=== PATIENT | male | born 1970 | race Caucasian/White ===

== ENCOUNTER 2019-01-27 10:14 | Emergency (ER) | payer BC ==
--- NOTE | 2019-01-27 11:25 | EDM.PDOC ---
ED HPI GENERAL MEDICAL PROBLEM - General Chief Complaint: Bite:Animal, Insect Stated Complaint: tick bite onright leg Time Seen by Provider: 01/27/19 11:15 Source of Information: Reports: Patient History Limitations: Reports: No Limitations - History of Present Illness INITIAL COMMENTS - FREE TEXT/NARRATIVE: Ciro is a 48 year old male presents to the ED today with tick bite to right leg behind knee on Monday, thinks it was a deer tick, now redness around area , no drainage, fever, joint pain or other rashes, no hx of lyme's Onset: Gradual Duration: Day(s): (3) - Related Data Allergies Allergy/AdvReac Type Severity Reaction Status Date / Time No Known Allergies Allergy Verified 01/27/19 10:42 Home Meds: Home Meds Omeprazole Magnesium [Prilosec Otc] 01/27/19 [History] glipiZIDE [Glucotrol] 01/27/19 [History] metFORMIN [Glucophage] 01/27/19 [History] Past Medical History - Past Health History Medical/Surgical History: Denies Medical/Surgical History Social & Family History - Tobacco Use Smoking Status *Q: Current Every Day Smoker Years of Tobacco use: 20 Packs/Tins Daily: 0.5 ED ROS GENERAL - Review of Systems Review Of Systems: ROS reveals no pertinent complaints other than HPI. ED EXAM, ANIMAL BITE - Physical Exam Exam: See Below Exam Limited By: No Limitations General Appearance: Alert, WD/WN, No Apparent Distress Head: Atraumatic Neck: Normal Inspection, Supple Respiratory/Chest: No Respiratory Distress Cardiovascular: Bradycardia Back Exam: Normal Inspection Extremities: Normal Range of Motion Neurological: Alert, Oriented Psychiatric: Normal Affect, Normal Mood Skin Exam: Other (tick bite behind right knee, head remains, removed with tweezers, surrounding erythema, no bull's eye, mildly warm) Lymphatic: No Adenopathy Course - Vital Signs Last Recorded V/S: Last Vital Signs Temp 34.9 C L 01/27/19 10:49 Pulse 54 L 01/27/19 10:49 Resp 12 01/27/19 10:49 BP 142/79 H 01/27/19 10:49 Pulse Ox 96 01/27/19 10:49 Ciro is a 48 year old male who presents today with tick bite, occurred on Monday. Patient's exam consistent with inflammatory response, ? early cellulitis, head was removed here today, no fever or other symptoms concerning for tick borne illness, given duration of time since bite and presentation will treat with 10 days of Doxycycline. Patient given instructions as to when to return, agreeable to plan of care and discharged in stable condition. Departure - Departure Time of Disposition: 11:45 Disposition: Home, Self-Care 01 Condition: Good Clinical Impression: Tick bite of right lower leg Qualifiers: Encounter type: initial encounter Qualified Code(s): S80.861A - Insect bite ( nonvenomous), right lower leg, initial encounter - Discharge Information Instructions: Insect Bite, Adult, [id number] Referrals: PCP,None [Primary Care Provider] - Forms: ED Department Discharge Additional Instructions: Take Doxycycline as prescribed. Return with any bulls eye type rash, joint pain or fever.
== END 2019-01-27 11:32 | disposition home or self-care (01) ==
LOC: JP.ED 10:14
DX: S80.261A Insect bite (nonvenomous), right knee, initial encounter (principal); E11.9 Type 2 diabetes mellitus without complications; F17.210 Nicotine dependence, cigarettes, uncomplicated; W57.XXXA Bitten or stung by nonvenomous insect and other nonvenomous arthropods, initial encounter
CPT/HCPCS: 99282

== ENCOUNTER 2022-11-14 06:31 | Day surgery (SDC) | payer BC ==
[2022-11-14] MEDS ORDERED: Lactated Ringers 1,000 ML IV SCH (07:15)
[2022-11-14] MEDS ORDERED: Midazolam 1 MG/ML 2 ML SDV ONE (07:17)
[2022-11-14] MEDS ORDERED: Propofol 200 MG/20 ML SDV ONE ×2 (07:17→08:57)
[2022-11-14] MEDS ORDERED: fentaNYL 100 MCG/2 ML SDV ONE (07:17)
== END 2022-11-14 10:15 | disposition home or self-care (01) ==
LOC: JP.SDS 06:31
PROVIDERS: ATTEND Student in an Organized Health Care Education/Training Program
DX: Z12.11 Encounter for screening for malignant neoplasm of colon (principal); Q43.8 Other specified congenital malformations of intestine; K21.9 Gastro-esophageal reflux disease without esophagitis; E11.9 Type 2 diabetes mellitus without complications
CPT/HCPCS: 45378; J2250; J2704; J3010; J7120

== ENCOUNTER 2024-11-02 19:37 | Inpatient (IN) | payer BC ==
[2024-11-02 20:48] LABS: BASOPHILS ABSOLUTE AUTO 0.04 K/uL (0.00-0.10); BASOPHILS PERCENT AUTO 0.9 % (0.1-1.3); EOSINOPHILS ABSOLUTE AUTO 0.03 K/uL (0.00-0.40); EOSINOPHILS PERCENT AUTO 0.7 % (0.0-5.4); HEMATOCRIT 44.5 % (38.4-49.7); HEMOGLOBIN 15.6 g/dL (12.9-16.9); IMMATURE GRAN ABSOLUTE AUTO 0.04 K/uL (0.00-0.23); IMMATURE GRAN PERCENT AUTO 0.9 % (0.0-0.7); LYMPHOCYTES ABSOLUTE AUTO 1.28 K/uL (0.8-3.3); LYMPHOCYTES PERCENT AUTO 30.1 % (11.4-47.7); MEAN CORPUSCULAR HEMOGLOBIN 32.8 pg (31.6-35.5); MEAN CORPUSCULAR HGB CONC 35.1 g/dL (31.6-35.5); MEAN CORPUSCULAR VOLUME 93.7 fL (81.4-99.0); MONOCYTES ABSOLUTE AUTO 0.41 K/uL (0.20-0.90); MONOCYTES PERCENT AUTO 9.6 % (3.3-12.6); NEUTROPHILS ABSOLUTE AUTO 2.45 K/uL (1.0-7.6); NEUTROPHILS PERCENT AUTO 57.8 % (40.0-78.1); PLATELET COUNT,PLT 212 K/uL (130-375); RED BLOOD CELL COUNT 4.75 M/uL (4.14-5.76); WHITE BLOOD CELL COUNT,WBC 4.3 K/uL (3.2-11.0)
[2024-11-02] MEDS: Adenosine 6 MG/2 ML SDV IVPUSH ONE (20:50)
[2024-11-02] MEDS: Sodium Chloride 0.9% 10 ML Syringe FLUSH PRN (20:51)
[2024-11-02] MEDS: Aspirin 81 MG Tab.Chew PO ONE (20:58)
[2024-11-02] MEDS ORDERED: Diltiazem 100 MG in Sodium Chloride 0.9% 100 ML IV SCH (21:00)
[2024-11-02] MEDS: Diltiazem 25 MG/5 ML SDV IVPUSH ONE (21:08)
[2024-11-02 21:11] LABS: A/G RATIO 0.9 (1.2-2.2); ALANINE AMINOTRANSFERASE,ALT 47 U/L (12-78); ALBUMIN 3.4 g/dL (3.4-5.0); ALKALINE PHOSPHATASE 128 U/L (46-116); ANION GAP 18.4 mmol/L (5.0-14.0); ASPARTATE AMNIOTRANSFERASE,AST 35 U/L (15-37); BILIRUBIN TOTAL 0.3 mg/dL (0.2-1.0); BLOOD UREA NITROGEN,BUN 7 mg/dL (7-18); CALCIUM 9.1 mg/dL (8.5-10.1); CARBON DIOXIDE,CO2 25 mmol/L (21-32); CHLORIDE,CL 96 mmol/L (100-108); CREATININE 1.1 mg/dL (0.8-1.3); EST CRCL DRUG DOSING (CG) 83.67 mL/min; ESTIMATED GFR 81 mL/min (>60); GLUCOSE RANDOM 391 mg/dL (74-106); POTASSIUM,K 4.4 mmol/L (3.6-5.2); PROTEIN TOTAL,TP 7.1 g/dL (6.4-8.2); SODIUM,NA 135 mmol/L (140-148); TROPONIN I HIGH SENSITIVITY 20.7 pg/mL (<=60.3)
[2024-11-02] MEDS: Sodium Chloride 0.9% 100 ML ONE (21:11)
[2024-11-02] MEDS: Diltiazem 100 MG AdvVial ONE (21:12)
[2024-11-02] MEDS ORDERED: Sodium Chloride 0.9% 250 ML AdvBag IV SCH (21:15)
[2024-11-02] MEDS: Diltiazem 100 MG in Sodium Chloride 0.9% 100 ML IV SCH (21:16)
[2024-11-02] MEDS: Enoxaparin 80 MG/0.8 ML Syringe SUBCUT ONE (21:18)
[2024-11-02] MEDS ORDERED: Glucagon,Human Recombinant 1 MG Vial IM PRN (22:25)
[2024-11-02] MEDS ORDERED: 50% Dextrose in Water 50 ML Syringe IVPUSH PRN (22:25)
[2024-11-02] MEDS: Insulin Regular, Human 100 Units/ML 10 ML Vial SUBCUT ONE (23:22)
[2024-11-03] MEDS: Metoprolol Tartrate 25 MG Tab PO ONE (00:17)
[2024-11-03] MEDS ORDERED: Nicotine 14 MG/24 Hr Patch TRDERM PRN (00:42)
[2024-11-03] MEDS ORDERED: Ondansetron 4 MG Tab.DIS PO PRN (00:42)
[2024-11-03] MEDS ORDERED: Acetaminophen 325 MG Tab PO PRN (00:42)
[2024-11-03] MEDS ORDERED: Sennosides/Docusate Sodium 50-8.6 MG Tab PO PRN (00:42)
[2024-11-03] MEDS ORDERED: LORazepam 1 MG Tab PO SCH (00:42)
[2024-11-03] MEDS ORDERED: Magnesium Hydroxide 400 MG/5 ML Susp 30 ML Cup PO PRN (00:42)
[2024-11-03] MEDS ORDERED: LORazepam 2 MG/ML SDV IV SCH (00:42)
[2024-11-03] MEDS ORDERED: Ondansetron 4 MG/2 ML SDV IV PRN (00:42)
[2024-11-03 05:43] LABS: HEMOGLOBIN 15.4 g/dL (12.9-16.9); MEAN CORPUSCULAR HEMOGLOBIN 32.9 pg (31.6-35.5); MEAN CORPUSCULAR HGB CONC 35.8 g/dL (31.6-35.5); MEAN CORPUSCULAR VOLUME 91.9 fL (81.4-99.0); RED BLOOD CELL COUNT 4.68 M/uL (4.14-5.76)
[2024-11-03] MEDS: Sodium Chloride 0.9% 100 ML ONE (05:48)
[2024-11-03] MEDS: Diltiazem 100 MG AdvVial ONE (05:48)
[2024-11-03 05:59] LABS: CALCIUM 9.5 mg/dL (8.5-10.1); EST CRCL DRUG DOSING (CG) 92.03 mL/min
[2024-11-03] MEDS ORDERED: Diltiazem 100 MG in Sodium Chloride 0.9% 100 ML IV SCH (08:00)
[2024-11-03] MEDS: Citalopram 20 MG Tab PO SCH (08:11)
[2024-11-03] MEDS: Folic Acid 1 MG Tab PO SCH (08:11)
[2024-11-03] MEDS: Thiamine 100 MG Tab PO SCH (08:11)
[2024-11-03] MEDS: Pantoprazole 40 MG Tab.CR PO SCH (08:11)
[2024-11-03] MEDS: Aspirin 81 MG Tab.Chew PO SCH (08:12)
[2024-11-03] MEDS: atorvaSTATin 20 MG Tab PO SCH (08:13)
[2024-11-03] MEDS: Metoprolol Tartrate 25 MG Tab PO SCH ×2 (08:13→14:07)
[2024-11-03] MEDS: Gabapentin 100 MG Cap PO SCH (08:13)
[2024-11-03] MEDS ORDERED: VARENICLINE 1 MG PO SCH (09:00)
[2024-11-03 10:31] LABS: APPEARANCE,URINE CLEAR (CLEAR); BILIRUBIN,URINE NEGATIVE (NEGATIVE); COLOR,URINE YELLOW (YELLOW); GLUCOSE,URINE 500 mg/dL (NEGATIVE); KETONES,URINE TRACE mg/dL (NEGATIVE); LEUKOCYTE ESTERASE,URINE NEGATIVE (NEGATIVE); NITRITE,URINE NEGATIVE (NEGATIVE); OCCULT BLOOD,URINE NEGATIVE (NEGATIVE); PH,URINE 5.5 (5.0-8.0); PROTEIN,URINE 30 mg/dL (NEGATIVE)
[2024-11-03 10:38] LABS: AMORPHOUS SEDIMENT,URINE NOT SEEN; BACTERIA,URINE FEW; EPITHELIAL CELLS,URINE RARE; MUCUS,URINE FEW; RBC,URINE 0-5 (0-5); WBC,URINE NOT SEEN (0-5)
[2024-11-03] MEDS: Diltiazem IR 30 MG Tab PO SCH (11:08)
[2024-11-03] MEDS: Potassium Chloride 20 MEQ Tab.ER PO ONE (11:08)
[2024-11-03] MEDS: Enoxaparin 40 MG/0.4 ML Syringe SUBCUT SCH (21:05)
[2024-11-03] MEDS: Melatonin 3 MG Tab PO SCH (21:05)
[2024-11-04] MEDS: metFORMIN 500 MG Tab PO SCH (08:29)
[2024-11-04] MEDS: Diltiazem 120 MG Cap.CD PO SCH (08:53)
[2024-11-04] MEDS: glipiZIDE 5 MG Tab PO SCH (11:26)
[2024-11-04] MEDS: Empagliflozin 25 MG Tab PO SCH (11:26)
== END 2024-11-04 16:19 | disposition home or self-care (01) | DRG 775 ==
LOC: JP.ED 19:37 → JP.ICU 11-03 00:13
PROVIDERS: ADMIT Registered Nurse; ATTEND Hospitalist
PROC: HZ2ZZZZ Detoxification Services for Substance Abuse Treatment (ICD-10-PCS; principal; 2024-11-03)
DX: F10.130 Alcohol abuse with withdrawal, uncomplicated (principal); I48.91 Unspecified atrial fibrillation; E78.00 Pure hypercholesterolemia, unspecified; K21.9 Gastro-esophageal reflux disease without esophagitis; F32.A Depression, unspecified; I48.92 Unspecified atrial flutter; F17.200 Nicotine dependence, unspecified, uncomplicated; E11.649 Type 2 diabetes mellitus with hypoglycemia without coma; Z79.84 Long term (current) use of oral hypoglycemic drugs; Z86.16 Personal history of COVID-19; Z79.899 Other long term (current) drug therapy
CPT/HCPCS: 36415; 80048; 80053; 80307; 81001; 82947; 83690; 83880; 84484; 85025; 85027; 93005; 93010; 96365; 96366; 96372; 96375; 99222; 99232; 99239; 99285; 99285-25; A9270-GY; J0153; J1650; J3490

== ENCOUNTER 2025-01-01 19:09 | Inpatient (IN) | payer BC ==
[2025-01-01 20:01] LABS: BASOPHILS ABSOLUTE AUTO 0.04 K/uL (0.00-0.10); BASOPHILS PERCENT AUTO 0.8 % (0.1-1.3); EOSINOPHILS ABSOLUTE AUTO 0.07 K/uL (0.00-0.40); EOSINOPHILS PERCENT AUTO 1.4 % (0.0-5.4); HEMATOCRIT 40.3 % (38.4-49.7); HEMOGLOBIN 13.9 g/dL (12.9-16.9); IMMATURE GRAN PERCENT AUTO 0.4 % (0.0-0.7); LYMPHOCYTES ABSOLUTE AUTO 1.53 K/uL (0.8-3.3); LYMPHOCYTES PERCENT AUTO 31.5 % (11.4-47.7); MEAN CORPUSCULAR HEMOGLOBIN 31.1 pg (31.6-35.5); MEAN CORPUSCULAR HGB CONC 34.5 g/dL (31.6-35.5); MEAN CORPUSCULAR VOLUME 90.2 fL (81.4-99.0); MONOCYTES ABSOLUTE AUTO 0.43 K/uL (0.20-0.90); MONOCYTES PERCENT AUTO 8.8 % (3.3-12.6); NEUTROPHILS ABSOLUTE AUTO 2.77 K/uL (1.0-7.6); NEUTROPHILS PERCENT AUTO 57.1 % (40.0-78.1); PLATELET COUNT,PLT 226 K/uL (130-375); RED BLOOD CELL COUNT 4.47 M/uL (4.14-5.76); WHITE BLOOD CELL COUNT,WBC 4.9 K/uL (3.2-11.0)
[2025-01-01 20:02] LABS: IMMATURE GRAN ABSOLUTE AUTO 0.02 K/uL (0.00-0.23)
[2025-01-01] MEDS: Sodium Chloride 0.9% 10 ML Syringe FLUSH PRN (20:14)
[2025-01-01] MEDS: Diltiazem 25 MG/5 ML SDV IVPUSH ONE (20:14)
[2025-01-01 20:24] LABS: A/G RATIO 1.2 (1.2-2.2); ALANINE AMINOTRANSFERASE,ALT 23 U/L (12-78); ALBUMIN 3.5 g/dL (3.4-5.0); ALKALINE PHOSPHATASE 77 U/L (46-116); ASPARTATE AMNIOTRANSFERASE,AST 20 U/L (15-37); BILIRUBIN TOTAL 0.6 mg/dL (0.2-1.0); BLOOD UREA NITROGEN,BUN 11 mg/dL (7-18); CALCIUM 8.9 mg/dL (8.5-10.1); CARBON DIOXIDE,CO2 27 mmol/L (21-32); CHLORIDE,CL 100 mmol/L (100-108); CREATININE 0.8 mg/dL (0.8-1.3); EST CRCL DRUG DOSING (CG) 115.04 mL/min; ESTIMATED GFR 106 mL/min (>60); GLUCOSE RANDOM 108 mg/dL (74-106); POTASSIUM,K 3.8 mmol/L (3.6-5.2); PROTEIN TOTAL,TP 6.5 g/dL (6.4-8.2); SODIUM,NA 133 mmol/L (140-148); TROPONIN I HIGH SENSITIVITY 13.3 pg/mL (<=60.3)
[2025-01-01 20:25] LABS: ANION GAP 9.8 mmol/L (5.0-14.0)
[2025-01-01 20:40] LABS: APPEARANCE,URINE CLEAR (CLEAR); BILIRUBIN,URINE NEGATIVE (NEGATIVE); COLOR,URINE YELLOW (YELLOW); GLUCOSE,URINE 500 mg/dL (NEGATIVE); KETONES,URINE NEGATIVE (NEGATIVE); LEUKOCYTE ESTERASE,URINE NEGATIVE (NEGATIVE); NITRITE,URINE NEGATIVE (NEGATIVE); OCCULT BLOOD,URINE NEGATIVE (NEGATIVE); PH,URINE 5.5 (5.0-8.0); PROTEIN,URINE 30 mg/dL (NEGATIVE)
[2025-01-01 20:47] LABS: RBC,URINE 0-5 (0-5); WBC,URINE 0-5 (0-5)
[2025-01-01 20:48] LABS: AMORPHOUS SEDIMENT,URINE NOT SEEN; BACTERIA,URINE NOT SEEN; EPITHELIAL CELLS,URINE RARE; MUCUS,URINE NOT SEEN
[2025-01-01] MEDS: Metoprolol Tartrate 50 MG Tab PO ONE (21:05)
[2025-01-01] MEDS ORDERED: Sennosides/Docusate Sodium 50-8.6 MG Tab PO PRN (22:12)
[2025-01-01] MEDS ORDERED: Acetaminophen 325 MG Tab PO PRN (22:12)
[2025-01-01] MEDS ORDERED: Ondansetron 4 MG/2 ML SDV IV PRN (22:12)
[2025-01-01] MEDS ORDERED: Magnesium Hydroxide 400 MG/5 ML Susp 30 ML Cup PO PRN (22:12)
[2025-01-01] MEDS ORDERED: Nicotine 14 MG/24 Hr Patch TRDERM PRN (22:12)
[2025-01-01] MEDS ORDERED: Ondansetron 4 MG Tab.DIS PO PRN (22:12)
[2025-01-01] MEDS ORDERED: Sodium Chloride 0.9% 10 ML Syringe FLUSH PRN (22:12)
[2025-01-02 05:48] LABS: HEMOGLOBIN 14.3 g/dL (12.9-16.9); MEAN CORPUSCULAR HEMOGLOBIN 31.3 pg (31.6-35.5); MEAN CORPUSCULAR HGB CONC 34.9 g/dL (31.6-35.5); MEAN CORPUSCULAR VOLUME 89.7 fL (81.4-99.0); RED BLOOD CELL COUNT 4.57 M/uL (4.14-5.76); WHITE BLOOD CELL COUNT,WBC 4.4 K/uL (3.2-11.0)
[2025-01-02 06:14] LABS: ANION GAP 12.8 mmol/L (5.0-14.0); CALCIUM 8.5 mg/dL (8.5-10.1); CREATININE 0.8 mg/dL (0.8-1.3); EST CRCL DRUG DOSING (CG) 115.04 mL/min; POTASSIUM,K 3.8 mmol/L (3.6-5.2); TROPONIN I HIGH SENSITIVITY 14.8 pg/mL (<=60.3)
[2025-01-02] MEDS: Diltiazem 120 MG Cap.CD PO SCH (08:28)
[2025-01-02] MEDS: Empagliflozin 25 MG Tab PO SCH (08:29)
[2025-01-02] MEDS: Apixaban 5 MG Tab PO SCH (08:29)
[2025-01-02] MEDS: glipiZIDE 5 MG Tab.ER PO SCH (08:29)
[2025-01-02] MEDS: Citalopram 20 MG Tab PO SCH (08:29)
[2025-01-02] MEDS: atorvaSTATin 20 MG Tab PO SCH (08:29)
[2025-01-02] MEDS: metFORMIN 500 MG Tab PO SCH (08:29)
[2025-01-02] MEDS: Metoprolol Succinate 50 MG Tab.ER PO SCH (08:29)
[2025-01-02] MEDS: Pantoprazole 40 MG Tab.CR PO SCH (08:29)
[2025-01-02] MEDS ORDERED: glipiZIDE 5 MG Tab PO SCH (09:00)
== END 2025-01-02 11:00 | disposition home or self-care (01) | DRG 201 ==
LOC: JP.ED 19:09 → JP.MS 21:39
PROVIDERS: ADMIT Nurse Practitioner; ATTEND Hospitalist
DX: I48.91 Unspecified atrial fibrillation (principal); G45.9 Transient cerebral ischemic attack, unspecified; E78.00 Pure hypercholesterolemia, unspecified; K21.9 Gastro-esophageal reflux disease without esophagitis; F32.A Depression, unspecified; E11.9 Type 2 diabetes mellitus without complications; I50.9 Heart failure, unspecified; F10.20 Alcohol dependence, uncomplicated; J30.9 Allergic rhinitis, unspecified; H54.7 Unspecified visual loss; G47.30 Sleep apnea, unspecified; F41.9 Anxiety disorder, unspecified; Z72.0 Tobacco use; Z79.84 Long term (current) use of oral hypoglycemic drugs; Z79.01 Long term (current) use of anticoagulants; Z86.16 Personal history of COVID-19; Z79.899 Other long term (current) drug therapy
CPT/HCPCS: 36415; 70551; 80048; 80053; 80307; 81001; 82947; 84484; 85025; 85027; 93005; 96374; 99222; 99239; 99285-25; A9270-GY; J3490